=== PATIENT | male | born 1975 | race Caucasian/White ===

== ENCOUNTER 2021-06-02 18:53 | Emergency (ER) | payer SELFPAY ==
[2021-06-02 19:02] VITALS: BP 190/97; PULSE 73; RESP 20; TEMP 36.6; O2SAT 99; BMI 31.6
[2021-06-02 19:15] VITALS: BP 175/98; PULSE 80; RESP 18; TEMP 36.8; O2SAT 98
--- NOTE | 2021-06-02 19:23 | W.ED.SKABFB ---
HPI - Skin/Abscess/Foreign Bdy General: Chief complaint: Skin/Abscess/Foreign Body Stated complaint: Wound on Head\Infected Time Seen by Provider: 06/02/21 18:59 Source: patient and family () Mode of arrival: ambulatory Limitations: no limitations History of Present Illness: HPI narrative: Patient is a nice 45-year-old male here with his for complaints of an abscess to his scalp. Patient has noticed lesion over the past few days. He tells me it started with an ingrown hair that his plucked out. states he has had several abscesses before but no known history of staph or MRSA. Patient is not been running fevers or chills. MD complaint: abscess/boil Onset (ago): day(s) Tetanus up to date: no Location: head Severity: moderate Pain Consistency: constant Relieving factors: none Exacerbating factors: none Context: none Associated symptoms: Reports no associated symptoms; Deny chills, fever(s), nausea or vomiting Treatments prior to arrival: attempted to drain pus at home Review of Systems Const: Denies: fever(s), chills, body aches, fatigue or malaise Eyes: Denies: change in vision, blurry vision, photophobia, eye discomfort, floaters or seeing flashes ENMT: Denies: ear or mastoid pain, nasal discharge, nasal congestion or sinus pain Card: Denies: chest pain Resp: Denies: dyspnea GI: Denies: nausea or vomiting Musc: Denies: neck pain Skin/Breast: Reports: other (scalp abscess) Neuro: Reports: headache(s) (just directly over site of abscess; no global headache/migraine noted); Denies: numbness in extremities, weakness in extremities, sensory changes, lack of coordination, difficulty walking, frequent falls, dizziness, vertigo, confusion, Slurred speech present or difficulty communicating thoughts Physical Exam Const: COMMON NORMALS: no acute distress, average body habitus, patient oriented x3, no limitations, healthy appearing, alert and well nourished ORIENTATION/CONSCIOUSNESS: Yes awake, Yes oriented to person, Yes oriented to place and Yes oriented to time HENMT: COMMON NORMALS: atraumatic HEAD & SCALP: atraumatic HEAD IMAGES: 1. 1 in indurated abscess with central skin breakdown and granulation tissue present; small amount of fluctuant drainage expressed (culture obtained); no surrounding redness/warmth FACE & SINUS: normal facial exam Neck/C-Spine: COMMON NORMALS: full ROM, no lymphadenopathy and no meningeal signs Lymph: OTHER: mild R posterior auricular lymph node swelling Neuro: SAIGE COMA SCALE: document GCS findings Saige coma scale eye opening: Spontaneous Saige coma scale verbal response: Orientated Saige coma scale motor response: Obey commands Saige coma scale total score: 15 COMMON NORMALS: patient oriented x3, CN's II-XII intact bilaterally, moves all extremities, no focal motor deficits and no sensory deficits noted SENSORIUM/ORIENTATION: Yes alert, Yes oriented to person, Yes oriented to place and Yes oriented to time MENINGEAL SIGNS: Yes no meningeal signs Skin: NARRATIVE SKIN EXAM: see scalp assessment for pertinent skin findings Course Vital Signs: Vital signs: Vital Signs Temperature 98.2 F 06/02/21 19:15 Pulse Rate 80 06/02/21 19:15 Respiratory Rate 18 06/02/21 19:15 Blood Pressure 175/98 06/02/21 19:15 Pulse Oximetry 98 06/02/21 19:15 MDM - Skin/Abscess/Foreign Bdy MDM Narrative: Medical decision making narrative: Wound is already draining on its own and there is no obvious fluctuance therefore incision and drainage not indicated. In addition wound appears fairly superficial and I don't think I would be able to place any packing at this time. Culture was obtained. Patient will be placed on Bactrim with return to ED precautions. Tetanus updated. Discharge Plan Discharge Patient Disposition: Home Clinical Impression: Abscess of scalp Condition: Stable Prescriptions: New Bactrim DS 800-160 mg tablet 2 tab PO BID 7 Days Qty: 28 RF: 0 Discharge Orders: Discharge ED (Routine); Ordered 06/02/21 Ordered By: Elicia Fernández Patient Instructions: Abscess (ED), Skin Abscess - Antibiotics Activity Restrictions/Additional Instructions: Please monitor your abscess for worsening symptoms such as worsening redness, swelling, increased drainage, red streaking, or fevers. If you have been on antibiotics for over 48 hours and continue to worsen you need to immediately return to the emergency department for re-evaluation. Keep abscess clean with warm soap and water. Coding Level of Care Code ED Personal Clothing Laundry Aide for Gil Fwd Exam Expanded Problem Focused
[2021-06-02] MEDS: tetanus-diphtheria tox (adult) 0.5 mL SDV IM (19:39)
[2021-06-02 19:41] VITALS: BP 163/92; PULSE 80; RESP 19; O2SAT 79
--- NOTE | 2021-06-05 14:02 | PC.NURSE ---
Lab called with a MRSA result from abscess culture.
== END 2021-06-02 19:49 | disposition home or self-care (01) ==
PROVIDERS: Emergency Provider Physician Assistant
DX: L02.811 Cutaneous abscess of head [any part, except face] (principal); Z23 Encounter for immunization
CPT/HCPCS: 87070; 87075; 87077; 87186; 87205; 90471; 90714; 99283

== ENCOUNTER 2021-07-20 20:49 | Emergency (ER) | payer SELFPAY ==
[2021-07-20 20:56] VITALS: BP 192/102; PULSE 84; RESP 16; TEMP 36.7; O2SAT 99; BMI 30.3
[2021-07-20 21:57] VITALS: BP 144/103; PULSE 81; RESP 18; O2SAT 98
--- NOTE | 2021-07-20 22:14 | CTR_ITS ---
PROCEDURE INFORMATION: Exam: CT Head Without And With Contrast Exam date and time: 07/20/2021 10:14 PM Age: 45 years old Clinical indication: Headache and other: Facial; Headache not specified; Patient HX: C/O ZAYAS and R facial pain and swelling after popping a pimple 24 hrs ago; Additional info: Eval for infection TECHNIQUE: Imaging protocol: Computed tomography of the head without and with intravenous contrast. Radiation optimization: All CT scans at this facility use at least one of these dose optimization techniques: automated exposure control; mA and/or kV adjustment per patient size (includes targeted exams where dose is matched to clinical indication); or iterative reconstruction. Contrast material: OMNI 300; Contrast volume: 95 ml; Contrast route: INTRAVENOUS (IV); COMPARISON: No relevant prior studies available. RADIATION DOSE METRICS: Total DLP (mGy-cm): 1371.3 FINDINGS: Brain: Normal. No hemorrhage. Unremarkable white matter. No mass effect. Cerebral ventricles: No ventriculomegaly. Paranasal sinuses: Visualized sinuses are unremarkable. No fluid levels. Mastoid air cells: Visualized mastoid air cells are well aerated. Orbital cavity: Right periorbital and preseptal soft tissue thickening. Bones/joints: Unremarkable. No acute fracture. Soft tissues: Right parietal subgaleal fluid measuring up to 1 cm thickness and in greatest dimension approximately 4.4 cm, question prior trauma with resolving hematoma, or scalp infection. Right anterior and lateral face soft tissue thickening. CT/CT head wo/w con [id number] IMPRESSION: 1. No acute intracranial abnormality. 2. Right parietal subgaleal fluid measuring up to 1 cm thickness and in greatest dimension approximately 4.4 cm, question prior trauma with resolving hematoma, or scalp infection. Radiation Dose CTDIVOL = (mGy): DLP = 1371.3 (mGy-cm)
--- NOTE | 2021-07-20 22:14 | CTR_ITS ---
PROCEDURE INFORMATION: Exam: CT Maxillofacial With Contrast Exam date and time: 07/20/2021 10:14 PM Age: 45 years old Clinical indication: Face pain; Patient HX: C/O ZAYAS and R facial pain and swelling after popping a pimple 24 hrs ago; Additional info: Eval R periorbital and R mastoid infection TECHNIQUE: Imaging protocol: Computed tomography images of the face with intravenous contrast. Radiation optimization: All CT scans at this facility use at least one of these dose optimization techniques: automated exposure control; mA and/or kV adjustment per patient size (includes targeted exams where dose is matched to clinical indication); or iterative reconstruction. Contrast material: OMNI 300; Contrast volume: 95 ml; Contrast route: INTRAVENOUS (IV); COMPARISON: CT head wo/w con [id number] 2021-07-20 22:50 RADIATION DOSE METRICS: Total DLP (mGy-cm): 764.56 FINDINGS: Orbital cavity: Evidence of cellulitis. Right periorbital and preseptal soft tissue thickening. Bones/joints: There is some mild low attenuation and enhancement along the inferior orbital rim, likely injury did and inflamed fat versus immature abscess and or phlegmon. Paranasal sinuses: Normal. No air-fluid levels. Soft tissues: Right parietal subgaleal fluid measuring up to 1 cm thickness and in greatest dimension approximately 4.4 cm, question prior trauma with resolving hematoma, or scalp infection and abscess. Substantial right face soft tissue swelling with skin thickening and stranding. Right anterior and lateral face soft tissue thickening. Dental: Dental caries and periodontal disease. Impression. CT/CT facial bones w con [id number] IMPRESSION: 1. No acute intracranial abnormality. 2. Right parietal subgaleal fluid measuring up to 1 cm thickness and in greatest dimension approximately 4.4 cm, question prior trauma with resolving hematoma, or scalp infection and abscess. Potentially drainable. 3. Substantial right face soft tissue swelling with skin thickening and stranding. Evidence of cellulitis. 4. Mild low attenuation and enhancement along the inferior orbital rim, likely injury did and inflamed fat versus immature abscess and or phlegmon. Probably not drainable at this time. Radiation Dose CTDIVOL = (mGy): DLP = 764.56 (mGy-cm)
--- NOTE | 2021-07-20 22:19 | W.ED.GENADLT ---
Documented by User: Piotr Heart MD 07/23/21 11:14 HPI - General Adult General: Chief complaint: Allergic Reaction Stated complaint: Swollen Face Time Seen by Provider: 07/20/21 21:52 History of Present Illness: HPI narrative: Patient is a 45-year-old male with history of prior scalp abscess from expressing a scalpal pustule presenting to the emergency room with complaints of R periorbital pain and swelling and R postauricular swelling and pain after expressing a R forehead pustule 24 hrs ago. Patient tells me that his attempted to express the pus for him. Patient denies any double vision, fever/chills, restricted eye movement, facial palsy. However since 5 hours ago, patient has had ringing in the right ear and posterior auricular pain on the right side. Patient denies any EAC drainage, trismus, oral airway involvement, stridor, shortness of breath. No fever chills up-to-date with tetanus from prior scalp abscess. Patient took 800 mg of ibuprofen without any improvement in pain. Onset: 24 hrs ago Duration:24 hrs Location:home Severity: moderate Review of Systems Narrative: Constitutional: No fever, no chills. HEENT: No vision changes, +R periorbital swelling/pain, +R postauricular swelling and pain CV: No chest pain, no palpitations PULM: no cough, no dyspnea. GI: No abdominal pain, no N/V/D. : No dysuria MSKEL: No muscle pain SKIN: No new rashes, no lesions. NEURO: No headache, no focal weakness. HEME: No visible bruises PSYCH: Normal mood Physical Exam Narrative: EXAM NARRATIVE: Head: Atraumatic Eyes: PERRL, conjunctiva without injection, no chemosis, periorbital swelling with tenderness to palpation, EOMI intact, no visible R eye proptosis ENT: Mucous membrane moist, + right postauricular/mastoid tenderness palpation, EAC intact, manipulation of the tragus did not elicit pain, TM intact R NECK: Supple, ROM intact LUNGS: LCTAB, no crackles/rhonchi CV: RRR ABDOMEN: Soft, nontender in all quadrants EXTREMITY: Normal ROM SKIN: No rash or erythema NEURO: Awake and alert, no focal motor deficits PSYCH: Normal mood and affect Course Vital Signs: Vital signs: Vital Signs Temperature 98.1 F 07/20/21 20:56 Pulse Rate 82 07/21/21 00:25 Respiratory Rate 18 07/21/21 00:25 Blood Pressure 167/99 07/21/21 00:25 Pulse Oximetry 98 07/21/21 00:25 MDM - General Adult MDM Narrative: Medical decision making narrative: Patient is a 45-year-old male with history of prior scalp abscess presenting to the emergency room with right-sided periorbital swelling and right posterior auricular swelling and pain. On exam, patient has erythema and edema around the left eye. No signs of vision changes. EOMI intact. Right EAC and right TM intact. Patient's physical exam and findings are consistent with periorbital cellulitis with possible mastoiditis. Posterior ocular tenderness on the right side, decision was made to order CT scan for further evaluation of possible infection. Work-up: CBC, BMP, CT face with contrast, CT head with and without contrast Intervention, morphine 4 mg, Unasyn On reassessment, I have offered patient admission versus discharge with close follow-up. I have explained the risk of going home today which include possible progression from periorbital cellulitis orbital cellulitis and possible intracranial infection including cavernous sinus infection. Patient verbalized understanding of the risk and still elects to go home with close follow-up with ophthalmology. Have given patient follow-up with Dr. Alvarenga. I have instructed patient to follow-up with Dr. Alvarenga in the next 24 to 48 hours. Patient received Unasyn and morphine emergency room with improvement in symptoms. Patient reassures me that he would follow-up closely with his outpatient provider I have given patient follow up with our case resolution specialist to be seen by our outpatient in 24 hrs for periorbital cellultis. Patient aware of a call from our case resolution specialist to schedule for appointment(s) and verbalizes understanding of the importance of following up. Patient has had the Tdap shot from earlier. Rx bactrim DS BID x 10 days and augmentin BID x 10 days Case signed out to Dr. Kennedy pending workup today. Lab Data: Labs: Lab Results 07/20/21 07/20/21 07/20/21 22:30 22:30 22:30 WBC 13.0 10^3/uL H 10 ^3/uL (4.0-10.0) RBC 6.02 10^6/uL H 10 ^6/uL (4.1-5.3) Hgb 16.2 g/dL g/dL (11.7-16.6) Hct 48.6 % % (42.0-52.0) MCV 80.7 fl fl (80-94) MCH 26.9 pg L pg (28.0-34.0) MCHC 33.3 g/dL g/dL (30.0-36.0) RDW 12.7 % % (12.1-15.1) Plt Count 305 10^3/cmm 10^3 /cmm (130-400) MPV 9.6 fL fL (7.4-10.4) Neut % (Auto) 63.5 % % Lymph % (Auto) 23.7 % % [place] % (Auto) 8.8 % % Eos % (Auto) 3.2 % % Baso % (Auto) 0.5 % % Neut # (Auto) 8.26 10^3/uL H 10 ^3/uL (1.8-7.7) Lymph # (Auto) 3.1 10^3/uL 10^3/ uL (0.8-4.8) [place] # (Auto) 1.2 10^3/uL H 10^ 3/uL (0.2-0.9) Eos # (Auto) 0.4 10^3/uL 10^3/ uL (0.0-0.8) Baso # (Auto) 0.1 10^3/uL 10^3/ uL (0.0-0.1) Nucleated RBC % (a uto) 0 % % Nucleated RBCs # 0.0 /100WBC /100W BC PT 12.60 SECONDS SEC ONDS (12.1-14.9) INR 0.91 (0.8-1.2) APTT 24.6 SECONDS SECO NDS (23.9-36.7) Sodium 132 mmol/L L mmol /L (136-145) Potassium 4.2 mmol/L mmol/L (3.5-5.1) Chloride 97 mmol/L L mmol/ L (98-107) Carbon Dioxide 20 mmol/L L mmol/ L (22-29) Anion Gap 19.2 H (5-19) BUN 12 mg/dL mg/dL (6-20) Creatinine 0.9 mg/dL mg/dL (0.7-1.2) GFR Calculation 90.8 mL/min mL/mi n (90-130) Glucose 360 mg/dL H mg/dL (65-115) Calculated Osmolal ity 288 mOsm/kg mOsm/ kg (285-295) Calcium 9.0 mg/dL mg/dL (8.5-10.5) Discharge Plan Discharge Patient Disposition: Home Clinical Impression: Cellulitis of face, Periorbital cellulitis Condition: Stable Prescriptions: New Augmentin 875-125 mg tablet 1 tab PO Q12H 10 Days Qty: 20 RF: 0 Bactrim DS 800-160 mg tablet 1 tab PO BID 10 Days Qty: 20 RF: 0 acetaminophen 500 mg tablet 500 mg PO Q6H PRN (Reason: pain) 5 Days Qty: 20 RF: 0 Discharge Orders: Discharge ED (Routine); Ordered 07/21/21 Ordered By: Yinka Kennedy Referrals: Bautista Hubbard MD [Physician] - 1-3 days Discharge Diet: Advance as tolerated Discharge Activity: Resume usual activity Patient Instructions: Cellulitis (ED), Periorbital Cellulitis in Adults (ED) Activity Restrictions/Additional Instructions: Come back to the emergency room you have any vision changes, eye pain, double vision, fever/chills, nausea/vomiting, headache, or any new or concerning complaints. Coding Level of Care Code ED Career Based Intervention Coordinator for Chg Fwd Documented by User: Yinka Kennedy MD 07/21/21 00:09 HPI - General Adult General: Chief complaint: Allergic Reaction Stated complaint: Swollen Face Time Seen by Provider: 07/20/21 21:52 Procedures Abscess I/D Site: face Side (if applicable): right Local Anesthetic: lidocaine 1% Amount of anesthesia used (mL): 6 Technique: incised with #11 blade Packing used?: none Course Vital Signs: Vital signs: Vital Signs Temperature 98.1 F 11/20/21 20:56 Pulse Rate 82 07/21/21 00:25 Respiratory Rate 18 07/21/21 00:25 Blood Pressure 167/99 07/21/21 00:25 Pulse Oximetry 98 07/21/21 00:25 MDM - General Adult MDM Narrative: Medical decision making narrative: Took patient over from Dr. Heart he does have an abscess to the right side of his head I incised and drained with moderate amount of purulent drainage patient placed on antibiotics is to follow-up stable for discharge. Lab Data: Labs: Lab Results 07/20/21 07/20/21 07/20/21 22:30 22:30 22:30 WBC 13.0 10^3/uL H 10 ^3/uL (4.0-10.0) RBC 6.02 10^6/uL H 10 ^6/uL (4.1-5.3) Hgb 16.2 g/dL g/dL (11.7-16.6) Hct 48.6 % % (42.0-52.0) MCV 80.7 fl fl (80-94) MCH 26.9 pg L pg (28.0-34.0) MCHC 33.3 g/dL g/dL (30.0-36.0) RDW 12.7 % % (12.1-15.1) Plt Count 305 10^3/cmm 10^3 /cmm (130-400) MPV 9.6 fL fL (7.4-10.4) Neut % (Auto) 63.5 % % Lymph % (Auto) 23.7 % % [place] % (Auto) 8.8 % % Eos % (Auto) 3.2 % % Baso % (Auto) 0.5 % % Neut # (Auto) 8.26 10^3/uL H 10 ^3/uL (1.8-7.7) Lymph # (Auto) 3.1 10^3/uL 10^3/ uL (0.8-4.8) [place] # (Auto) 1.2 10^3/uL H 10^ 3/uL (0.2-0.9) Eos # (Auto) 0.4 10^3/uL 10^3/ uL (0.0-0.8) Baso # (Auto) 0.1 10^3/uL 10^3/ uL (0.0-0.1) Nucleated RBC % (a uto) 0 % % Nucleated RBCs # 0.0 /100WBC /100W BC PT 12.60 SECONDS SEC ONDS (12.1-14.9) INR 0.91 (0.8-1.2) APTT 24.6 SECONDS SECO NDS (23.9-36.7) Sodium 132 mmol/L L mmol /L (136-145) Potassium 4.2 mmol/L mmol/L (3.5-5.1) Chloride 97 mmol/L L mmol/ L (98-107) Carbon Dioxide 20 mmol/L L mmol/ L (22-29) Anion Gap 19.2 H (5-19) BUN 12 mg/dL mg/dL (6-20) Creatinine 0.9 mg/dL mg/dL (0.7-1.2) GFR Calculation 90.8 mL/min mL/mi n (90-130) Glucose 360 mg/dL H mg/dL (65-115) Calculated Osmolal ity 288 mOsm/kg mOsm/ kg (285-295) Calcium 9.0 mg/dL mg/dL (8.5-10.5) Imaging Data^: ct face: Attestation: I personally reviewed and interpreted this imaging study as follows: Radiologist's impression: [place] [address] CT Scan Report Signed Patient: Dilan Jacobs Unit #: [id number] : 1975 Age/Sex: 45 / M ADM Date: 07/20/21 Loc: ER Room/Bed: Attending Dr: Ordering Provider/Ordering MD: Piotr Heart MD Date of Service: 07/20/21 Procedure(s): CT facial bones w con [id number] Accession Number(s): [id number] Report Number: [id number] PROCEDURE INFORMATION: Exam: CT Maxillofacial With Contrast Exam date and time: 07/20/2021 10:14 PM Age: 45 years old Clinical indication: Face pain; Patient HX: C/O ZAYAS and R facial pain and swelling after popping a pimple 24 hrs ago; Additional info: Eval R periorbital and R mastoid infection TECHNIQUE: Imaging protocol: Computed tomography images of the face with intravenous contrast. Radiation optimization: All CT scans at this facility use at least one of these dose optimization techniques: automated exposure control; mA and/or kV adjustment per patient size (includes targeted exams where dose is matched to clinical indication); or iterative reconstruction. Contrast material: OMNI 300; Contrast volume: 95 ml; Contrast route: INTRAVENOUS (IV); COMPARISON: CT head wo/w con [id number] 2021-07-20 22:50 RADIATION DOSE METRICS: Total DLP (mGy-cm): 764.56 FINDINGS: Orbital cavity: Evidence of cellulitis. Right periorbital and preseptal soft tissue thickening. Bones/joints: There is some mild low attenuation and enhancement along the inferior orbital rim, likely injury did and inflamed fat versus immature abscess and or phlegmon. Paranasal sinuses: Normal. No air-fluid levels. Soft tissues: Right parietal subgaleal fluid measuring up to 1 cm thickness and in greatest dimension approximately 4.4 cm, question prior trauma with resolving hematoma, or scalp infection and abscess. Substantial right face soft tissue swelling with skin thickening and stranding. Right anterior and lateral face soft tissue thickening. Dental: Dental caries and periodontal disease. Impression. CT/CT facial bones w con [id number] IMPRESSION: 1. No acute intracranial abnormality. 2. Right parietal subgaleal fluid measuring up to 1 cm thickness and in greatest dimension approximately 4.4 cm, question prior trauma with resolving hematoma, or scalp infection and abscess. Potentially drainable. 3. Substantial right face soft tissue swelling with skin thickening and stranding. Evidence of cellulitis. 4. Mild low attenuation and enhancement along the inferior orbital rim, likely injury did and inflamed fat versus immature abscess and or phlegmon. Probably not drainable at this time. Radiation Dose CTDIVOL = (mGy): DLP = 764.56 (mGy-cm) Dictated By: Jairon Hammer MD Signed By: Jairon Hammer MD Signed Date/Time: 07/20/212319 DD/ 13 Discharge Plan Discharge Patient Disposition: Home Clinical Impression: Cellulitis of face, Periorbital cellulitis Condition: Stable Prescriptions: New Augmentin 875-125 mg tablet 1 tab PO Q12H 10 Days Qty: 20 RF: 0 Bactrim DS 800-160 mg tablet 1 tab PO BID 10 Days Qty: 20 RF: 0 acetaminophen 500 mg tablet 500 mg PO Q6H PRN (Reason: pain) 5 Days Qty: 20 RF: 0 Discharge Orders: Discharge ED (Routine); Ordered 07/21/21 Ordered By: Yinka Kennedy Referrals: Bautista Hubbard MD [Physician] - 1-3 days Discharge Diet: Advance as tolerated Discharge Activity: Resume usual activity Patient Instructions: Cellulitis (ED), Periorbital Cellulitis in Adults (ED) Activity Restrictions/Additional Instructions: Come back to the emergency room you have any vision changes, eye pain, double vision, fever/chills, nausea/vomiting, headache, or any new or concerning complaints. Coding Level of Care Code ED Career Based Intervention Coordinator for Gil Henao
[2021-07-20 22:43] LABS: Basophils # 0.1 10^3/uL (0.0-0.1); Basophils % 0.5 %; Eosinophils # 0.4 10^3/uL (0.0-0.8); Eosinophils % 3.2 %; Hematocrit 48.6 % (42.0-52.0); Hemoglobin 16.2 g/dL (11.7-16.6); Lymphocytes # 3.1 10^3/uL (0.8-4.8); Lymphocytes % 23.7 %; Mean Corpuscular HGB Conc 33.3 g/dL (30.0-36.0); Mean Corpuscular Hemoglobin 26.9 pg (28.0-34.0); Mean Corpuscular Volume 80.7 fl (80-94); Mean Platelet Volume 9.6 fL (7.4-10.4); Monocytes # 1.2 10^3/uL (0.2-0.9); Monocytes % 8.8 %; Neutrophils # 8.26 10^3/uL (1.8-7.7); Neutrophils % 63.5 %; Nucleated Red Blood Cells % 0 %; Platelet Count 305 10^3/cmm (130-400); Red Blood Count 6.02 10^6/uL (4.1-5.3); Red Cell Distribution Width 12.7 % (12.1-15.1)
[2021-07-20 22:54] LABS: INR 0.91 (0.8-1.2)
[2021-07-20] MEDS: iohexol 300 mg/mL 100 mL Btl IV (23:01)
[2021-07-20 23:02] VITALS: BP 168/84; PULSE 78; RESP 18; O2SAT 99
[2021-07-20 23:03] LABS: Partial Thromboplastin Time 24.6 SECONDS (23.9-36.7)
[2021-07-20 23:12] LABS: Anion Gap 19.2 (5-19); Blood Urea Nitrogen 12 mg/dL (6-20); Carbon Dioxide 20 mmol/L (22-29); Chloride 97 mmol/L (98-107); Glomerular Filtration Rate 90.8 mL/min (90-130); Glucose 360 mg/dL (65-115); Osmolality Calculated 288 mOsm/kg (285-295); Potassium 4.2 mmol/L (3.5-5.1); Sodium 132 mmol/L (136-145)
[2021-07-20] MEDS: ampicillin-sulbactam 3 GM in sodium chloride 0.9% (plus) 50 ML IV (23:19)
[2021-07-20 23:20] VITALS: RESP 18; O2SAT 98
[2021-07-20] MEDS: morphine 4 mg/mL SDV 1 mL IVP (23:20)
[2021-07-21 00:25] VITALS: BP 167/99; PULSE 82; RESP 18; O2SAT 98
--- NOTE | 2021-07-22 11:19 | DCPLANNER ---
program management manager had message to schedule a follow up appointment for patient with Dr. Hubbard, ENT. program management manager emailed patients information to both Ludivina and Karena at [facility] General Surgery / ENT clinic. Patients information will be printed and reviewed. Clinic will call patient with appointment information.
--- NOTE | 2021-07-23 16:09 | DCPLANNER ---
Addendum entered by Leola Carroll 09/22/21 15:34: Patient had a follow up appointment scheduled with ENT - patient did attend appointment. Original Note: Patient has a follow up appointment scheduled for Thursday, July 29, 2021 at 9:[address] Hubbard. Clinic will call patient with appointment information.
== END 2021-07-21 00:28 | disposition home or self-care (01) ==
PROVIDERS: Emergency Medicine; Emergency Provider Emergency Medicine
DX: L03.211 Cellulitis of face (principal); L03.213 Periorbital cellulitis; L02.811 Cutaneous abscess of head [any part, except face]
CPT/HCPCS: 10060; 70470; 70487; 80048; 85025; 85610; 85730; 96365; 96375; 99284; J0295; J2270; Q9967

== ENCOUNTER 2022-10-07 08:28 | Observation (INO) | payer BC, SELFPAY ==
[2022-10-07] VITALS (21 sets, daily range): BP systolic 123–150; BP diastolic 73–88; PULSE 67–99; RESP 15–22; TEMP 36.8–37.6; O2SAT 95–100; BMI 27.1
--- NOTE | 2022-10-07 08:36 | ECG_ITS ---
[facility] Test Date: 2022-10-07 Pat Name: Dilan Jacobs Department: Room: Gender: Male Silverware Cleaner: : 1975 Requested By: Elicia Fernández Order Number: [id number] Inna MD: Ulices Gomez M.D. Measurements Intervals Fletcher Rate: 93 P: 9 MO: 124 QRS: -86 QRSD: 90 T: 34 QT: 327 QTc: 407 Interpretive Statements SINUS RHYTHM PATTERN CONSISTENT WITH PULMONARY DISEASE INFERIOR LEAD ST ELEVATION WITH Q WAVES ACUTE NM Compared to ECG 03/02/2015 20:45:25 Sinus bradycardia no longer present Electronically Signed On 10-07-2022 18:10:01 MIX MILL TENDER by Ulices Gomez M.D. [id number]
[2022-10-07] MEDS: heparin 5,000 unit/mL INJ 1 mL 4000 UNIT IVP (08:48)
[2022-10-07] MEDS: aspirin 81 mg Chew Tablet 324 MG PO (08:48)
--- NOTE | 2022-10-07 08:48 | XACV_ITS ---
Exam Room: ED.ROOM10 Ht: 185 cm Wt: 91 kg BSA: 2.17 m2 Gender: Male : 1975 Exam Priority: Routine Procedure(s): Procedure Description: Diagnostic procedure Procedure Description: Left Heart Catheterization Procedure Description: Left ventriculography Procedure Description: Coronary Angiography Diagnostic Cath Status: Urgent Diagnostic Findings * Patient presented to the emergency room this morning with pain for about [address] elevation inferiorly with reciprocal changes in the anterior precordial leads. Angiography was recommended. His troponin is greater than 3000. * Coronary angiography reveals right coronary artery dominance. The right coronary artery is essentially normal. There is minor narrowing of the mid posterior descending artery which is very tortuous. Otherwise there are no lesions.. * The left main coronary artery is normal. Circumflex contains minor luminal irregularities. The LAD is essentially normal except for where it narrows down in the midportion there is a 70 to 80% lesion. This is not the culprit area however. Conclusions 1. Troponin elevation with inferior wall motion disturbance without corresponding coronary artery lesion. Recommendations * Medical treatment. Interventional RX Recommendation: medical therapy and/or counseling Anticoagulation: Heparin Ventriculography Ejection Fraction: 48.0 % Left Ventriculography Findings: * Only in the mid inferior wall. Ejection fraction is probably closer to 50%. Pressures Phase:Rest AO : 151 / 92 ( 108 ) @ 9:07:00 AM 148 / 80 ( 109 ) @ 9:23:00 AM LV : 165 / -15 / 9 @ 9:18:00 AM 161 / -15 / 28 @ 9:22:00 AM Clinical Evaluation EBL: 5mL-10mL Procedural Details Baseline sample Acquired. HR: 0 BPM. Identified patient by full name and date of as verbalized by the patient/guarantor. Does the consent match the physician's order: N/A Emergent; Informed Consent not obtained due to time critical life threat. Accurate & Complete Informed Consent: N/A Emergent; Informed Consent not obtained due to time critical life threat. Inpatient/Outpatient History & Physical on Chart: N/A Emergent; Informed Consent not obtained due to time critical life threat. If H&P is completed, is and addenduem needed: N/A Emergent; Informed Consent not obtained due to time critical life threat; If yes, is the addendum complete: N/A Emergent; Informed Consent not obtained due to time critical life threat. Visualize and Verify Site with Patient/Guarantor: N/A. Relevant Radiology Images available: N/A Emergent; Informed Consent not obtained due to time critical life threat. Pre-op teaching completed and patient verbalized understanding. The risks, benefits, and alternatives of sedation and/or procedure were discussed by physician. The patient agrees to continue. Procedure started. Current diagnosis: STEMI. PERRLA. Strong, equal hand wind tunnel technician bilaterally. Lungs clear x 5 lobes. IV Site on Arrival: 18 gauge in the left forearm. IV Fluids: 0.9% NaCl at KVO. 0 mL infused prior to slab lifting engineer. Pre Procedural Pulses: right radial was 3+. Pre Procedural Pulses: left dorsalis pedis was 2+. Oxygen started at 2liters/min via nasal canula. right groin was prepped with chloroprep then draped in the usual sterile fashion. right radial was prepped with chloroprep then draped in the usual sterile fashion. Baseline sample Acquired. HR: 61 BPM. Physician notified. Baseline sample Acquired. HR: 283 BPM. Physician arrived. Physician scrubbed in. Immediate Pre-Procedure Time Out. Correct Patient: N/A Emergent; Informed Consent not obtained due to time critical life threat; Correct Procedure: N/A Emergent; Informed Consent not obtained due to time critical life threat; Correct Site: N/A Emergent; Informed Consent not obtained due to time critical life threat; Correct Patient Position: N/A Emergent; Informed Consent not obtained due to time critical life threat; Correct Supplies: N/A Emergent; Informed Consent not obtained due to time critical life threat; Dried Flammable Prep: N/A Emergent; Informed Consent not obtained due to time critical life threat; Blood Products Available: N/A Emergent; Informed Consent not obtained due to time critical life threat;. Lidocaine 1% infiltrated to the right radial. Arterial access obtained. 6 tristanian JR 4 guide catheter was inserted over the wire. Multiple views taken of right coronary artery. Catheter out. 6 tristanian CLS 3 guide catheter was inserted over the wire. Multiple views taken of left coronary artery. Catheter out. A 6 tristanian Angled Pig catheter in over wire. Admit Source: Emergency department. EDP Sample taken: LV 165/-16,9; HR: 11 BPM; SpO2: Off%. LV gram performed in BELLA @ 10 mL/second for a total of 30 mL. Lab called with critical trop 8731. no further instructions per dr. EDP Sample taken: LV 161/-16,28; HR: 47 BPM; SpO2: Off%. Pullback taken: LV Off; AO Off; Mean: , Peak to Peak: , SEP: ; HR: 22 BPM; SpO2: Off%. Catheter out. PERRLA. Strong, equal hand wind tunnel technician bilaterally. No VTE prophylaxis required. Medication's Wasted: Lidocaine 1% = 3 mL. Medication's Wasted: Heparin = 1000 units. Medication's Wasted: Nitro = 49.8 mg. Total IV fluids: 50 mL. A TR Band was successful obtaining hemostatsis at the Right Radial artery insertion site. Post-op diagnosis: MT with normal coronaries. Complications: none. Estimated blood loss: 5mL-10mL. Responsiveness - Normal response to verbal stimuli; alert and oriented, PERRLA. Airway - Unaffected, no intervention required; spontaneous ventilation. Circulation: W/N/L, pulses unchanged. Nausea/Vomiting: No. Procedure completed. Patient transferred by wheelchair to CPRU. Vital chart was stopped. Access Site Site: Right Radial artery Sheath Size: 6 Fr Hemostasis Method: TR Band Hemostasis Success: Successful Procedure Medications Start: 8:58 AM Stop: 8:58 AM Medication: Versed Amount: 1 mg Route: I.V. Start: 8:58 AM Stop: 8:58 AM Medication: Zofran (ondansetron) Amount: 4 mg Route: I.V. Start: 8:59 AM Stop: 8:59 AM Medication: Fentanyl Amount: 25 mcg Route: I.V. Start: 9:01 AM Stop: 9:01 AM Medication: Fentanyl Amount: 25 mcg Route: I.V. Start: 9:04 AM Stop: 9:04 AM Medication: Versed Amount: 1 mg Route: I.V. Start: 9:06 AM Stop: 9:06 AM Medication: Nitrogylcerin Amount: 200 mcg Route: I.A. Start: 9:09 AM Stop: 9:09 AM Medication: Fentanyl Amount: 25 mcg Route: I.V. Start: 9:13 AM Stop: 9:13 AM Medication: Fentanyl Amount: 25 mcg Route: I.V. I, the attending physician, have reviewed and verified all procedure medications. Yes, all medications given per verbal order History/Risk Factors Hypertension: No Dyslipidemia: No Peripheral Arterial Disease (PAD): No Myocardial Infarction (MT): No Obesity: No Prior Interventions PCI: No CABG: No Valve Surgery: No Report Signatures Finalized by Dr. Dexter Jeffries MD on 10/07/2022 10:33 AM
[2022-10-07] MEDS: clopidogrel 300 mg Tablet 600 MG PO (08:49)
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
[2022-10-07 09:07] LABS: Partial Thromboplastin Time 26.8 SECONDS (23.9-36.7)
[2022-10-07 09:12] LABS: Alanine Aminotransferase 65 U/L (0-41); Albumin Level 3.7 g/dL (3.5-5.2); Alkaline Phosphatase 74 U/L (40-130); Blood Urea Nitrogen 12 mg/dL (6-20); Calcium 8.6 mg/dL (8.5-10.5); Carbon Dioxide 22 mmol/L (22-29); Chloride 95 mmol/L (98-107); Globulin 3.4 g/dL (1.3-4.6); Glomerular Filtration Rate 79.8 mL/min (90-130); Glucose 296 mg/dL (65-115); Osmolality Calculated 277 mOsm/kg (285-295); Sodium 128 mmol/L (136-145); Total Protein 7.1 g/dL (6.6-8.7)
[2022-10-07 09:16] LABS: Anion Gap 15.2 (5-19); Potassium 4.2 mmol/L (3.5-5.1)
[2022-10-07 09:17] LABS: Aspartate Amino Transferase 176 U/L (0-40)
[2022-10-07 09:18] LABS: Troponin(5th) Baseline 2491 ng/L (0-15)
--- NOTE | 2022-10-07 09:42 | PC.NURSE ---
Pt arrived from labor contract analyst to CPRU 2 at this time for recovery until floor bed available. Pt alert and oriented X 4. Breathing even and non-labored on room air. TR band in place to right radial. No signs of bleeding or hematoma. Pt educated on right arm activity restrictions, verbalized understanding. Denies pain. Pt placed on bedside template clerk.
--- NOTE | 2022-10-07 10:32 | ECG_ITS ---
[facility] Test Date: 2022-10-07 Pat Name: Dilan Jacobs Department: Room: Gender: Male Network Desktop Support Specialist: : 1975 Requested By: Elicia Fernández Order Number: [id number] Keith MD: Ulices Gomez M.D. Measurements Intervals [place] Rate: 73 P: 7 ID: 150 QRS: -62 QRSD: 91 T: 32 QT: 356 QTc: 393 Interpretive Statements SINUS RHYTHM INFERIOR WALL ST ELEVATION VA WITH Q WAVES IN LEADS II,III, aVF ACUTE VA Compared to ECG 10/07/2022 08:36:14 No significant changes Electronically Signed On 10-07-2022 18:12:[address] by Ulices Gomez M.D. [id number]
--- NOTE | 2022-10-07 11:07 | PC.NURSE ---
Blood glucose checked at this time. Pt refused sliding scale insulin, verbalizes i do not take medicine for that, I do my own thing. I don't even check my blood sugar . Nurse provided education on importance of managing blood sugar, pt resistant to education.
[2022-10-07 11:14] LABS: Glucose Point of Care 278 mg/dL (70-110)
[2022-10-07] MEDS: metoprolol tartrate 25 mg Tablet PO ×2 (11:14→17:13)
--- NOTE | 2022-10-07 11:57 | PC.NURSE ---
Pt refused to eat lunch due to being a diabetic diet. Verbalizes i dont eat that crap . Nurse offered to get a different option for lunch and refused, verbalized i dont want anything else
--- NOTE | 2022-10-07 13:14 | PC.NURSE ---
TR band Removal 1040 - 2 ml air removed from right radial TR band. Site asymptomatic. No signs of bleeding or hematoma. 1110 - 2 ml air removed from right radial TR band. Site asymptomatic. No signs of bleeding or hematoma. 1120 - 3 ml air removed from right radial TR band. Site asymptomatic. No signs of bleeding or hematoma. 1140 - 3 ml air removed from right radial TR band. Site asymptomatic. No signs of bleeding or hematoma. 1155 - 3 ml air removed from right radial TR band. Site asymptomatic. No signs of bleeding or hematoma. 1230 - 3 ml air removed from right radial TR band. Site asymptomatic. No signs of bleeding or hematoma. TR band deflated and left in place to monitor for bleeding. 1310- Site asymptomatic, TR band removed and band aid applied.
--- NOTE | 2022-10-07 13:16 | PC.NURSE ---
Report called to NINA Payne at this time. Patient transported by w/c at this time to room 103.
[2022-10-07] MEDS: acetaminophen 325 mg Tablet 650 MG PO ×2 (13:41→20:45)
--- NOTE | 2022-10-07 14:00 | PC.NURSE ---
Received patient from collaborative physician. Patient is awake and alert, dressing is clean, dry, and intact. No hematoma present, no chest pain present. Left shoulder pain that is relieved with Tylenol. VS stable, nurse will continue to monitor.
--- NOTE | 2022-10-07 14:43 | ECG_ITS ---
[facility] Test Date: 2022-10-07 Pat Name: Dilan Jacobs Department: Room: 103 Gender: Male Audit Lead: : 1975 Requested By: Elicia Fernández Order Number: [id number] Keith MD: Ulices Gomez M.D. Measurements Intervals [place] Rate: 67 P: 9 LA: 155 QRS: -52 QRSD: 90 T: 26 QT: 358 QTc: 378 Interpretive Statements SINUS RHYTHM LEFT ANTERIOR FASCICULAR BLOCK [QRS AXIS <= -45, QR IN I, RS IN II] INFERIOR WALL ST ELEVATION ACUTE DC Compared to ECG 10/07/2022 10:57:03 Left anterior fascicular block now present Electronically Signed On 10-07-2022 18:11:33 MACHINE HEEL SEAT LASTER by Ulices Gomez M.D. [id number]
[2022-10-07 15:35] LABS: Basophils % 0.3 %; Eosinophils % 0.3 %; Hematocrit 48.9 % (42.0-52.0); Hemoglobin 16.2 g/dL (11.7-16.6); Lymphocytes # 2.1 10^3/uL (0.8-4.8); Lymphocytes % 13.1 %; Mean Corpuscular HGB Conc 33.1 g/dL (30.0-36.0); Mean Corpuscular Volume 84.6 fl (80-94); Monocytes # 1.9 10^3/uL (0.2-0.9); Neutrophils # 11.78 10^3/uL (1.8-7.7); Neutrophils % 73.9 %; Nucleated Red Blood Cells % 0 %; Platelet Count 257 10^3/cmm (130-400); Red Blood Count 5.78 10^6/uL (4.1-5.3); Red Cell Distribution Width 12.5 % (12.1-15.1); White Blood Count 15.9 10^3/uL (4.0-10.0)
[2022-10-07 16:09] LABS: Troponin 5 6HR 2233 ng/L (0-15)
[2022-10-07] MEDS: sodium chloride 0.9% 1,000 ML 100 ML IV (23:37)
[2022-10-08 03:56] VITALS: BP 128/76; PULSE 85; RESP 18; TEMP 37.1; O2SAT 97
[2022-10-08 06:00] VITALS: PULSE 79
[2022-10-08 07:16] VITALS: BP 141/82; PULSE 83; RESP 18; TEMP 37.8; O2SAT 95
--- NOTE | 2022-10-08 08:35 | P.DS_ITS ---
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 Upon his arrival to the hospital his EKG revealed ST segment elevation inferiorly with ST segment depression in a reciprocal fashion in the anterior precordial leads. He was still having chest pain so he was taken immediately to the cardiac catheterization laboratory. Hospital Course Hospital Course To my surprise, his coronary arteries were essentially normal. There was no culprit lesion in the right coronary artery or the circumflex. His baseline troponin was 2491. He had a mild elevation in his transaminases. His blood sugars were above 300. He refused treatment including insulin. His chest pain resolved after several hours. He did have a wall motion disturbance in the mid inferior wall consistent with a myocardial infarction. This could well be a Takotsubo type syndrome but in the inferior wall. His ejection fraction was close to 50% so the wall motion disturbance was quite small. The procedure was done from the right radial artery. There were no complications. At the time of discharge he is ambulating and feeling well. He works as a guest relation officer. He will be off work for 2 weeks. Physical Exam Narrative: GENERAL: In general he looks and feels well HEENT: Exam within normal limits. NECK: Supple without jugular vein distention. The carotid upstroke is normal without bruits. BACK: Exam normal. LUNGS: Clear. HEART: Regular rate and rhythm. ABDOMEN: Benign without organomegaly or tenderness. EXTREMITIES: No edema. At the time of discharge his right radial artery area is flat, dry without hematoma or bleeding. NEUROLOGIC: Exam normal. SKIN: Unremarkable. Discharge Data Studies Completed and Pending Completed Studies During Hospitalization Category Date Time Status [employer] request for service Stat Exams 10/07/22 08:48 Completed Laboratory Results WBC 15.9 10^3/uL (4.0-10.0) H 10/07/22 15:25 RBC 5.78 10^6/uL (4.1-5.3) H 10/07/22 15:25 Hgb 16.2 g/dL (11.7-16.6) 10/07/22 15:25 Hct 48.9 % (42.0-52.0) 10/07/22 15:25 MCV 84.6 fl (80-94) 10/07/22 15:25 MCH 28.0 pg (28.0-34.0) 10/07/22 15:25 MCHC 33.1 g/dL (30.0-36.0) 10/07/22 15:25 RDW 12.5 % (12.1-15.1) 10/07/22 15:25 Plt Count 257 10^3/cmm (130-400) 10/07/22 15:25 MPV 9.0 fL (7.4-10.4) 10/07/22 15:25 Neut % (Auto) 73.9 % 10/07/22 15:25 Lymph % (Auto) 13.1 % 10/07/22 15:25 [place] % (Auto) 12.0 % 10/07/22 15:25 Eos % (Auto) 0.3 % 10/07/22 15:25 Baso % (Auto) 0.3 % 10/07/22 15:25 Neut # (Auto) 11.78 10^3/uL (1.8-7.7) H 10/07/22 15:25 Lymph # (Auto) 2.1 10^3/uL (0.8-4.8) 10/07/22 15:25 [place] # (Auto) 1.9 10^3/uL (0.2-0.9) H 10/07/22 15:25 Eos # (Auto) 0.0 10^3/uL (0.0-0.8) 10/07/22 15:25 Baso # (Auto) 0.0 10^3/uL (0.0-0.1) 10/07/22 15:25 Nucleated RBC % (auto) 0 % 10/07/22 15:25 Nucleated RBCs # 0.0 /100WBC 10/07/22 15:25 PT 13.50 SECONDS (12.1-14.9) 10/07/22 08:47 INR 1.00 (0.8-1.2) 10/07/22 08:47 APTT 26.8 SECONDS (23.9-36.7) 10/07/22 08:47 Sodium 128 mmol/L (136-145) L 10/07/22 08:47 Potassium 4.2 mmol/L (3.5-5.1) 10/07/22 08:47 Chloride 95 mmol/L (98-107) L 10/07/22 08:47 Carbon Dioxide 22 mmol/L (22-29) 10/07/22 08:47 Anion Gap 15.2 (5-19) 10/07/22 08:47 BUN 12 mg/dL (6-20) 10/07/22 08:47 Creatinine 1.0 mg/dL (0.7-1.2) 10/07/22 08:47 GFR Calculation 79.8 mL/min (90-130) L 10/07/22 08:47 Glucose 296 mg/dL (65-115) H 10/07/22 08:47 POC Glucose 278 mg/dL (70-110) H 10/07/22 11:07 Calculated Osmolality 277 mOsm/kg (285-295) L 10/07/22 08:47 Calcium 8.6 mg/dL (8.5-10.5) 10/07/22 08:47 Total Bilirubin 1.0 mg/dL (0.15-1.2) 10/07/22 08:47 AST 176 U/L (0-40) H 10/07/22 08:47 ALT 65 U/L (0-41) H 10/07/22 08:47 Alkaline Phosphatase 74 U/L (40-130) 10/07/22 08:47 Troponin T Baseline 2491 ng/L (0-15) H* 10/07/22 08:47 Troponin T Hi Sens 6Hr 2233 ng/L (0-15) H 10/07/22 15:12 Troponin T Hi Sens 6Hr Delta -258 ng/L (0-12) L 10/07/22 15:12 Total Protein 7.1 g/dL (6.6-8.7) 10/07/22 08:47 Albumin 3.7 g/dL (3.5-5.2) 10/07/22 08:47 Globulin 3.4 g/dL (1.3-4.6) 10/07/22 08:47 Procedures Performed Left heart catheterization, coronary angiography, left ventriculography. Vitals Last Vital Signs Temp 100.0 F H 10/08/22 07:16 Pulse 83 10/08/22 07:16 Resp 18 10/08/22 07:16 BP 141/82 10/08/22 07:16 Pulse Ox 95 10/08/22 07:16 O2 Del Method 10/08/22 07:16 Discharge Plan Discharge Patient Disposition: Home Condition: Stable Prescriptions: New aspirin 81 mg Tablet,Delayed Release (Dr/Ec) 81 mg PO DAILY Qty: 100 3RF metoprolol tartrate 25 mg Tablet 25 mg PO BID Qty: 60 3RF nitroglycerin 0.4 mg Tablet, Sublingual 0.4 mg sublingual Q5M PRN (Reason: Chest Pain) Qty: 25 2RF Continued ibuprofen 200 mg Tablet 800 - 1,000 mg PO Q6H PRN (Reason: Pain) Discharge Orders: Discharge Order (Routine); Ordered 10/08/22 Ordered By: Dexter Jeffries Referrals: Katelyn Horvath FNP [Nurse Practitioner] - 7-10 days (Right radial artery check and chemistry panel.) Discharge Diet: Diabetic Discharge Activity: Increase activity as tolerated and Limit activity as instructed Patient Instructions: Opioid Safety Activity Restrictions/Additional Instructions: No lifting over 5 pounds for 2 days with the right arm. No heavy strenuous activity for 2 weeks. No work for 2 weeks. Discharge Attestations Time Spent in Discharge Care*: greater than 30 min Quality Metrics Clinical Quality Measures [ No reported AMI, CVA or VTE this stay] Coding Level of Care Code Acute Code for Chg Fwd Diagnoses Cigarette smoker F17.210 Dental caries K02.9 Cellulitis and abscess of face L03.211; L02.01 Acute transmural inferior wall CA I21.19 Diabetes mellitus E11.9 Dilutional hyponatremia E87.1 Transaminitis R74.01
[2022-10-08] MEDS: metoprolol tartrate 25 mg Tablet PO (09:00)
[2022-10-08] MEDS: aspirin 81 mg EC Tablet PO (09:00)
[2022-10-08 09:06] VITALS: BP 141/82; PULSE 83; RESP 18; TEMP 37.8; O2SAT 95
== END 2022-10-08 09:43 | disposition home or self-care (01) ==
LOC: ER 08:44 → CCL 08:48 → CSU 23:25 → CCL 10-08 06:50 → CSU 10-08 07:41
PROVIDERS: Physician Assistant; Admitting Provider Internal Medicine Cardiovascular Disease; Emergency Provider Family Medicine; Visit Provider Internal Medicine Cardiovascular Disease
DX: I21.19 ST elevation (STEMI) myocardial infarction involving other coronary artery of inferior wall (principal); F17.210 Nicotine dependence, cigarettes, uncomplicated; K02.9 Dental caries, unspecified; L03.211 Cellulitis of face; L02.01 Cutaneous abscess of face; E11.9 Type 2 diabetes mellitus without complications; E87.1 Hypo-osmolality and hyponatremia; R74.01 Elevation of levels of liver transaminase levels; Z91.14 Patient's other noncompliance with medication regimen
CPT/HCPCS: 36415; 36416; 80053; 82962; 84484; 85025; 85610; 85730; 93005; 93458; 96361; 96365; 96374; 99152; 99153; 99285; C1769; C1887; C1894; G0378; J1644; J2250; J2405; J3010; J3490; J7030; Q9967

== ENCOUNTER 2022-10-20 09:26 | Outpatient (CLI) | payer BC, SELFPAY | END 2022-10-20 09:27 | disposition home or self-care (01) | PROVIDERS: Visit Provider Nurse Practitioner Family | DX: I21.19 ST elevation (STEMI) myocardial infarction involving other coronary artery of inferior wall (principal) | CPT/HCPCS: 36415; 80048 ==

== ENCOUNTER → 2023-02-25 08:28 | Outpatient (BNVA) | payer BC, SELFPAY | PROVIDERS: Visit Provider Nurse Practitioner Family | DX: S86.811A Strain of other muscle(s) and tendon(s) at lower leg level, right leg, initial encounter (principal); X58.XXXA Exposure to other specified factors, initial encounter; Y93.02 Activity, running | CPT/HCPCS: 73590 ==